=== PATIENT | female | born 2000 | race Two or more races ===

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

== ENCOUNTER 2018-07-23 02:37 | Emergency (ER) | payer MEDICAID ==
[~2018-07-23] VITALS: Ht 160 cm; Wt 52.2 kg
[2018-07-23 03:24] LABS: Basophils # (auto) 0 uL; Basophils % (auto) 0.4 % (0.0-2.0); Eosinophils # (auto) 0.1 uL; Eosinophils % (auto) 0.6 % (0.0-7.0); Hematocrit 37.8 % (36.0-46.0); Hemoglobin 12.6 g/dL (12.2-16.2); Lymphocytes # (auto) 1.8 uL; Lymphocytes % (auto) 19.3 % (10.0-50.0); Mean Corpuscular Hemoglobin 28.3 pg (28.0-32.0); Mean Corpuscular Hgb Conc. 33.5 g/dL (32.0-36.0); Mean Corpuscular Volume 84.7 fL (80.0-100.0); Monocytes # (auto) 0.5 uL; Monocytes % (auto) 5.9 % (0.0-12.0); Neutrophils # (auto) 6.8 uL; Neutrophils % (auto) 73.8 % (37.0-80.0); Platelet Count (auto) 184 10^3/uL (140-450); Red Blood Cells 4.46 10^6/uL (4.0-5.20); Red Cell Distribution Width 13.3 % (11.8-14.3); White Blood Cell 9.2 10^3/uL (4.4-10.8)
[2018-07-23 03:35] LABS: Albumin 3.7 g/dL (3.4-5.0); BUN/Creatinine Ratio 16.1; Calcium 9.1 mg/dL (8.5-10.1)
[2018-07-23 03:47] LABS: Bilirubin, Total 0.2 mg/dL (0.2-1.0); Total Protein 7.9 g/dL (6.4-8.2)
[2018-07-23 09:23] VITALS: BP 100/51
== END 2018-07-23 09:35 | disposition home or self-care (01) ==
LOC: ER 02:37
DX: O46.91 Antepartum hemorrhage, unspecified, first trimester (principal); O23.41 Unspecified infection of urinary tract in pregnancy, first trimester; Z3A.10 10 weeks gestation of pregnancy
CPT/HCPCS: 36415; 76801; 80053; 81002; 84702; 85025

== ENCOUNTER 2024-06-08 23:33 | Emergency (ER) | payer MEDICAID ==
[~2024-06-08] VITALS: Ht 160 cm; Wt 76.4 kg
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
[2024-06-09] MEDS: LIDOCAINE 1% HCL (LOCAL ANESTH.) INJ 20ML MDV ID ONE (00:15)
[2024-06-09 00:50] VITALS: BP 103/55; PULSE 94; RESP 19; TEMP 98.4; O2SAT 96
[2024-06-09] MEDS ORDERED: AUG875T PO (01:51)
[2024-06-09] MEDS: HYDROcodone-ACET 5/325MG TAB PO ONE (02:01)
[2024-06-09] MEDS: TETANUS-DIPTH-ACEL PERTUSSIS 0.5ML SYR Tdap IM ONE (02:02)
== END 2024-06-09 02:12 | disposition home or self-care (01) ==
LOC: ER 23:33
DX: S31.811A Laceration without foreign body of right buttock, initial encounter (principal); W18.39XA Other fall on same level, initial encounter; Y93.89 Activity, other specified; Y92.89 Other specified places as the place of occurrence of the external cause; Y99.8 Other external cause status
CPT/HCPCS: 12001; 90471; 90715

== ENCOUNTER 2024-06-16 20:32 | Emergency (ER) | payer MEDICAID ==
[~2024-06-16] VITALS: Ht 160 cm; Wt 75.6 kg
[2024-06-16 20:46] VITALS: BP 125/86; PULSE 71; RESP 18; TEMP 98.4; O2SAT 99
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
== END 2024-06-16 22:14 | disposition home or self-care (01) ==
LOC: ER 20:32
DX: S31.811D Laceration without foreign body of right buttock, subsequent encounter (principal); Z79.899 Other long term (current) drug therapy; X58.XXXD Exposure to other specified factors, subsequent encounter

== ENCOUNTER 2024-11-15 07:18 | Day surgery (SDC) | payer MEDICAID ==
[2024-11-13 10:35] LABS: Hematocrit 44.0 % (36.0-46.0); Hemoglobin 15.1 g/dL (12.2-16.2); Mean Corpuscular Hemoglobin 32.8 pg (28.0-32.0); Mean Corpuscular Volume 95.3 fL (80.0-100.0); Nucleated Red Blood Cells % 0.2 %
[2024-11-13 10:43] LABS: INR 1.01 (0.9-1.15); Partial Thromboplastin Time 26.8 SEC (24.5-34.5); Prothrombin Time 10.7 sec (9.3-11.8)
[2024-11-13 11:27] LABS: Albumin 4.4 g/dL (3.2-4.8); Alkaline Phosphatase 104 U/L (46-116); Anion Gap 8 (5-15); BUN/Creatinine Ratio 6.1 (10.0-20.0); Calcium 9.5 mg/dL (8.7-10.4); Carbon Dioxide 27 mmol/L (20-31); Chloride 103 mmol/L (98-107); Potassium 4.2 mmol/L (3.5-5.1); Sodium 138 mmol/L (136-145); Total Protein 7.7 g/dL (5.7-8.2); Urine Protein, UAD Negative (Negative)
[2024-11-13 11:28] LABS: Bilirubin, Total 0.8 mg/dL (0.2-1.0)
[2024-11-13 11:29] LABS: Alanine Aminotransferase 47 U/L (7-40); Blood Urea Nitrogen 5 mg/dL (9-23); Glucose 68 mg/dL (74-106)
[~2024-11-15] VITALS: Ht 160 cm; Wt 74.8 kg
[2024-11-15] MEDS ORDERED: KETAMINE 50mg/ML 1ml syringe IV ONE (07:19)
[2024-11-15] MEDS ORDERED: HYDROmorphone HCL 2 MG/ML VL/or syr ONE (08:25)
[2024-11-15] MEDS ORDERED: ONDANSETRON HCL 4 MG/2 ML VIAL ONE (08:25)
[2024-11-15] MEDS ORDERED: KETOROLAC TROMETH 30 MG/ML 1ML VIAL ONE (08:25)
[2024-11-15] MEDS ORDERED: MIDAZOLAM HCL 2MG/2ML 2ml VIAL (1mg/ml) ONE (08:25)
[2024-11-15] MEDS ORDERED: fentaNYL CITRATE 100 MCG/2 ML VL ONE (08:25)
[2024-11-15] MEDS ORDERED: PROPOFOL 10 MG/ML 20 ML IV ONE (08:25)
[2024-11-15] MEDS ORDERED: GLYCOPYRROLATE 0.2 MG/ML 1ML VIAL ONE (08:25)
[2024-11-15] MEDS: BUPIVACAINE 0.25% INJ 50ML VIAL ONE (09:53)
[2024-11-15] MEDS ORDERED: SUGAMMADEX 200mg/2ml Vial (100MG/ML) IV ONE (10:47)
[2024-11-15 11:14] VITALS: PULSE 109; RESP 20; TEMP 97; O2SAT 96
[2024-11-15] MEDS ORDERED: ONDANSETRON HCL 4 MG/2 ML VIAL IV PRN (11:30)
[2024-11-15] MEDS ORDERED: ACETAMINOPHEN IV 1000 MG/100ML (10MG/ML) IV ONE (11:30)
[2024-11-15] MEDS ORDERED: HYDROmorphone HCL 2 MG/ML VL/or syr IV PRN (11:30)
[2024-11-15 12:05] VITALS: BP 123/83; PULSE 72; RESP 18; O2SAT 97
--- NOTE | 2024-11-15 15:12 | DVHOP2 ---
Operative Report - 2 Report Details Date: 11/15/24 Preop Diagnosis: Symptomatic cholelithiasis Postop Diagnosis: Symptomatic cholelithiasis Surgeon: Karan Holt MD Clinical Specialist Vascular: Gagan Rdz NP Anesthesiologist: Dr. Rondon Anesthesia: General Consent: The patient was informed of the risks and benefits of the procedure. These include but are not limited to complications of anesthesia, postoperative infection, incomplete relief of symptoms, recurrence of symptoms, damage to blood vessels, nerves and tendons, deep venous thrombosis, pulmonary embolism and possible need for repeat surgery in the future. Complications: None Estimated Blood Loss: 5 mL Findings: Gallbladder with chronic inflammatory changes, dense overlying peritoneum, thin omental adhesions to the gallbladder, large stone at the infundibulum Indications for Surgery: Past acute cholecystitis episodes and repeated intermittent right upper quadrant pain episodes Name of Procedure Performed Laparoscopic cholecystectomy Procedure Details Procedure Details: Upon arriving to the operating room patient was transferred to the operating table and placed in the supine position with arms extended. General endotracheal anesthesia was induced. Time-out was observed. Patient was prepped and draped in the standard sterile surgical fashion with chlorhexidine. I then made a curvilinear infraumbilical incision and carried down the dissection to fascia. Once at the fascia I grasped the umbilical stalk with Linda clamp and worked it down to its base and elevated it. I then gained entry into the peritoneal cavity utilizing Kehinde technique. I then placed 2 interrupted fascial retention sutures of 0 Vicryl. Kehinde cannula was then introduced into the peritoneal cavity. Cavity was insufflated to 15 mmHg with toleration. Camera was introduced and entry site was surveyed, no injuries noted. Patient was then placed in the reverse Trendelenburg [id number] position. I placed 3 additional 5 mm ports under direct vision at the epigastric area, right midclavicular under the ribs area, and right flank. I grasped the gallbladder, and could not, I then decompressed the gallbladder with the needle syringe. I extracted 60 mL of bowel mixture with sludge. Once the gallbladder was decompressed, I then grasped the gallbladder at the fundus and elevated it towards the right shoulder. Gallbladder appeared with chronic inflammatory changes thick overlying peritoneum, and thin omental adhesions at the infundibulum. Omental adhesions when they are taken down bluntly and with cautery. I then placed a 2nd grasper at the infundibulum, there was a large stone stuck in the infundibulum. The 2nd grasper was retracted laterally and I was able to expose Calot triangle. We then incised the peritoneum on either side of the base of the gallbladder towards the liver. Cholesterol angle was fully skeletonized to include the 2 structures entering the gallbladder, cystic artery and cystic duct. Critical view of safety was achieved. I then placed 2 5 mm clips proximal on the cystic artery and 1 distal. I then milked the cystic duct for any stones, there were non felt. I then placed 3 5 mm clips proximal on the cystic duct and 1 distal. Both the artery and the duct were transected. I then noted an additional posterior cystic artery branch, it was clipped once distally and 1 proximally. The artery was transected. I then removed the gallbladder from the liver fossa utilizing electrocautery. Once the gallbladder was completely removed from the gallbladder fossa placed it in the Endo-Catch bag and removed it from the peritoneal cavity through the infraumbilical site. There was no bile spillage during the case. I then inspected the gallbladder fossa, and there was some oozing coming from the vein that runs lateral to the gallbladder. The vein was double clipped and oozing stopped. Hemostasis achieved. I then serially irrigated the gallbladder fossa and over the liver. I reinspected the gallbladder fossa there was no bleeding. This concluded the intraperitoneal portion of the surgery. All counts complete and correct. The 3 5 mm ports were removed under direct visualization, no bleeding from the abdominal wall. The peritoneal cavity was allowed to desufflate. The previous retention sutures were closed. Skin sites were closed with 4-0 Monocryl and Dermabond. Marcaine 0.25% was used for local anesthetic. Patient tolerated the procedure well and was transferred to PACU in stable condition. Specimen: Gallbladder and contents Condition Stable Disposition Home KARAN BANKS MD Nov 15, 2024 15:11
== END 2024-11-15 12:20 | disposition home or self-care (01) ==
LOC: SUR 07:18
PROVIDERS: ATTEND Student in an Organized Health Care Education/Training Program
DX: K80.10 Calculus of gallbladder with chronic cholecystitis without obstruction (principal)
CPT/HCPCS: 36415; 47562; 80053; 81001; 81025; 85025; 85610; 85730; 86850; 86900; 86901; 87086; 88304; J0694; J1100; J1171; J1885; J2250; J2405; J2704; J3010; J3490